=== PATIENT | male | born 1990 | race African-American/Black ===

== ENCOUNTER 2020-05-12 22:49 | Emergency (ER) | payer OTHER ==
[~2020-05-12] VITALS: Ht 177.8 cm; Wt 87.3 kg
[2020-05-12] MEDS ORDERED: IV RINGERS SOLUTION,LACTATED 1,000 ML IV SCH (23:09)
--- NOTE | 2020-05-12 23:09 | PHYS DOC ---
Past History Past Medical History Seasonal allergies, Nasal polyps General Adult HPI: HPI: ".. I had nasal surgery on 05/03.. but it has been bleeding all day...".." It started bleeding real bad after I blew my nose really hard... 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 Patient has history of seasonal allergies and nasal polyps. Patient underwent polyp ectomy on May 03. Surgery was done by [facility] [address] patient states he had been doing well until tonight when he blew his nose real hard and bleeding started. Patient applied some time plexus bilaterally to naris to scope controlled the bleeding. However complains that blood is draining down the back of his throat. Patient denies any fevers. Patient denies any history of coagulopathy with him or family members. No history immunosuppression. No recent travel outside of [facility]. No specific ill contacts. Patient has bilateral nasal bleeding. Primarily on right nare. Does have blood draining down the back of the throat. Review of Systems: Review of Systems: Constitutional: Denies fever or chills Eyes: Denies change in visual acuity HENT: Complains of epistaxis Respiratory: Denies cough or shortness of breath Cardiovascular: Denies chest pain or edema GI: Denies abdominal pain, nausea, vomiting, bloody stools or diarrhea : Denies dysuria Musculoskeletal: Denies back pain or joint pain Integument: Denies rash Neurologic: Denies headache, focal weakness or sensory changes Endocrine: Denies polyuria or polydipsia Lymphatic: Denies swollen glands Psychiatric: Denies depression or anxiety Family History: Family History: Noncontributory to presentation Current Medications: Current Meds: See nursing for home meds Allergies: Allergies: Allergies Coded Allergies Type Severity Reaction Last Updated Verified No Known Drug Allergies 05/12/20 No Physical Exam: PE: Constitutional: Well developed, well nourished, in acute distress, non-toxic oswaldo earance. [] HENT: Normocephalic, findings of recent surgery in both naris, bilateral external ears normal, oropharynx moist, has active bleeding draining down the pharynx, no oral exudates, nose active bleeding bilateral nares, However more active bleeding on right Eyes: PERRLA, EOMI, conjunctiva normal, no discharge. [] Neck: Normal range of motion, no tenderness, supple, no stridor. [] Cardiovascular:Heart rate regular rhythm, no murmur [] Lungs & Thorax: Bilateral breath sounds equal at apex on auscultation [] Abdomen: Bowel sounds normal, soft, no tenderness, no masses, no pulsatile masses. [] Skin: Warm, dry, no erythema, no rash. No noted findings of petechiae or excessive ecchymosis Back: No tenderness, no CVA tenderness. [] Extremities: No tenderness, no cyanosis, no clubbing, ROM intact, no edema. [] Neurologic: Alert and oriented X 3, normal motor function, normal sensory function, no focal deficits noted. [] Psychologic: Affect anxious, judgement normal, mood normal. [] EKG: EKG: [] Radiology/Procedures: Radiology/Procedures: [] Heart Score: Risk Factors: Risk Factors: DM, Current or recent (<one month) smoker, HTN, HLP, family history of CAD, obesity. Risk Scores: Score 0 - 3: 2.5% MACE over next 6 weeks - Discharge Home Score 4 - 6: 20.3% MACE over next 6 weeks - Admit for Clinical Observation Score 7 - 10: 72.7% MACE over next 6 weeks - Early Invasive Strategies Course & Med Decision Making: Course & Med Decision Making Pertinent Labs and Imaging studies reviewed. (See chart for details) Procedure note:- Patient moved to trauma room-for adequate lighting. Patient placed in sitting position. Patient received application of cocaine and Afrin Randy-Synephrine. Equal amounts mixed together. . This was administered by MAD applicator. Bleeding was monitored for several minutes.. This application of nasal spray appears to have stopped the active bleeding. Did readminister 1 spray to right nare. Patient then received small amount of antibiotic ointment to bilateral naris. Patient was monitored for additional hour and a half pending his lab work. Patient had no recurrence of his active nasal bleeding. Patient was issued the remaining Afrin/cocaine mixture and the MAD applicator. Advised he may use 2 sprays to nares if bleeding reoccurs. However if active bleeding reoccurs will need nasal packing. Patient advised he may sniff. Patient advised not to ever blow his nose hard for the next several days. Patient to call Dr.Vidur Garcia this morning for possible earlier follow-up for his recent surgery. Patient to remain sitting when he sleeps. Avoid bending over.. May take Tylenol for discomfort. Patient to not take any NSAIDs. Impression: 1. Acute epistaxis 2. Recent Nasal Polyp /24 3. Hx Seasonal allergies. [] Dragon Disclaimer: Dragon Disclaimer: This electronic medical record was generated, in whole or in part, using a voice recognition dictation system. ABIGAIL JASON MD May 12, 2020 23:09
[2020-05-12] MEDS ORDERED: COCAINE 4% TOPICAL SOLUTION. TP ONE (23:15)
[2020-05-12] MEDS ORDERED: PHENYLEPHRINE 0.5% NASAL SPRAY 15ML BOTTLE. NS ONE (23:19)
[2020-05-12 23:29] LABS: BASO # 0.1 x10^3/uL (0.0-0.2); BASO % 1 % (0-3); EOS # 0.4 x10^3/uL (0.0-0.7); EOS % 5 % (0-3); HEMATOCRIT 43.6 % (39.0-53.0); HEMOGLOBIN 14.3 g/dL (13.0-17.5); LYMPH % 38 % (24-48); MEAN CORPUSCULAR HEMOGLOBIN 28 pg (25-35); MEAN CORPUSCULAR HGB CONC 33 g/dL (31-37); MEAN CORPUSCULAR VOLUME 85 fL (79-100); MONO # 0.5 x10^3/uL (0.0-1.1); MONO % 7 % (0-9); NEUT % 50 % (31-73); PLATELET COUNT 205 x10^3/uL (140-400); RED BLOOD COUNT 5.13 x10^6/uL (4.30-5.70); RED CELL DISTRIBUTION WIDTH 13.3 % (11.5-14.5); WHITE BLOOD COUNT 7.9 x10^3/uL (4.0-11.0)
[2020-05-12] MEDS ORDERED: PHENYLEPHRINE 1% NASAL DROP 30ML BOTTLE. NS ONE (23:30)
[2020-05-12] MEDS ORDERED: BACITRACIN ZINC TOPICAL OINT PACKET. TP ONE (23:30)
[2020-05-12 23:35] LABS: CALCIUM 8.6 mg/dL (8.5-10.1); CREATININE 1.2 mg/dL (0.7-1.3); GFR 72.6
[2020-05-13 00:43] VITALS: BP 121/71
== END 2020-05-13 01:00 | disposition home or self-care (01) ==
LOC: ER 22:49
DX: R04.0 Epistaxis (principal)
CPT/HCPCS: 36415; 80048; 85025; 85610; 85730; 96360; 96361; 99285; J7120

== ENCOUNTER 2020-10-05 19:14 | Emergency (ER) | payer OTHER ==
[~2020-10-05] VITALS: Ht 177.8 cm; Wt 91.7 kg
--- NOTE | 2020-10-05 19:44 | PHYS DOC ---
Past History Past Medical History: No Pertinent History (MADELINE PANG APRN) Past Surgical History: Other Additional Past Surgical Histo: nose polyp (MADELINE PANG APRN) Alcohol Use: Rarely (MADELINE PANG APRN) General Adult EDM: Chief Complaint: LACERATION/AVULSION HPI: HPI: Patient is a 30-year-old male who presents with laceration to left hand. Patient states he was trying to open a tool box with a knife when he slipped and cut his hand. Patient has full range of motion of hand and fingers. Bleeding is controlled. Patient is up-to-date on his tetanus. Denies health history. (MADELINE PANG APRN) Review of Systems: Review of Systems: Constitutional: Denies fever or chills Eyes: Denies change in visual acuity HENT: Denies nasal congestion or sore throat Respiratory: Denies cough or shortness of breath Cardiovascular: Denies chest pain or edema GI: Denies abdominal pain, nausea, vomiting, bloody stools or diarrhea : Denies dysuria Musculoskeletal: Denies back pain or joint pain Integument: Laceration to left hand Neurologic: Denies headache, focal weakness or sensory changes Endocrine: Denies polyuria or polydipsia Lymphatic: Denies swollen glands Psychiatric: Denies depression or anxiety (MADELINE PANG APRN) Allergies: Allergies: Allergies Coded Allergies Type Severity Reaction Last Updated Verified No Known Drug Allergies 05/12/20 No (MADELINE PANG APRN) Physical Exam: PE: Constitutional: Well developed, well nourished, no acute distress, non-toxic appearance. [] HENT: Normocephalic, atraumatic, bilateral external ears normal, oropharynx moist, no oral exudates, nose normal. [] Eyes: PERRLA, EOMI, conjunctiva normal, no discharge. [] Neck: Normal range of motion, no tenderness, supple, no stridor. [] Cardiovascular:Heart rate regular rhythm, no murmur [] Lungs & Thorax: Bilateral breath sounds clear to auscultation [] Abdomen: Bowel sounds normal, soft, no tenderness, no masses, no pulsatile masses. [] Skin: Warm, dry, no erythema, no rash. [] Back: No tenderness, no CVA tenderness. [] Extremities: No tenderness, no cyanosis, no clubbing, ROM intact, no edema. [] Neurologic: Alert and oriented X 3, normal motor function, normal sensory function, no focal deficits noted. [] Psychologic: Affect normal, judgement normal, mood normal. [] (MADELINE PANG APRN) Current Patient Data: Vital Signs: Vital Signs Date Time Temp Pulse Resp B/P (MAP) Pulse Ox O2 Delivery O2 Flow Rate FiO2 10/05/20 19:14 98.4 70 16 141/78 (99) 100 Room Air (MADELINE PANG APRN) EKG: EKG: [] (MADELINE PANG APRN) Radiology/Procedures: Radiology/Procedures: wound cleaned with normal saline. glue applied and steri strips[] (MADELINE PANG APRN) Heart Score: C/O Chest Pain: No Risk Factors: Risk Factors: DM, Current or recent (<one month) smoker, HTN, HLP, family history of CAD, obesity. Risk Scores: Score 0 - 3: 2.5% MACE over next 6 weeks - Discharge Home Score 4 - 6: 20.3% MACE over next 6 weeks - Admit for Clinical Observation Score 7 - 10: 72.7% MACE over next 6 weeks - Early Invasive Strategies (MADELINE PANG APRN) Course & Med Decision Making: Course & Med Decision Making Pertinent Labs and Imaging studies reviewed. (See chart for details) [] Left hand laceration. Up-to-date on tetanus. Bleeding is controlled. Wound cleaned with normal saline. Glue and Steri-Strips applied. (MADELINE PNAG APRN) Course & Med Decision Making Did not see or evaluate patient. Agree with CASING INSPECTOR's work-up and disposition per note. (YRN RODRIGUEZ MD) Dragon Disclaimer: Dragon Disclaimer: This electronic medical record was generated, in whole or in part, using a voice recognition dictation system. (MADELINE PANG APRN) Departure Departure: Impression: Primary Impression: Laceration Disposition: 01 DC HOME SELF CARE/HOMELESS Condition: STABLE Referrals: PCP,UNKNOWN (PCP) Patient Instructions: Laceration Care, Adult Additional Instructions: EMERGENCY DEPARTMENT GENERAL DISCHARGE INSTRUCTIONS Thank you for coming to [facility] (ED) today and trusting us with you care. We trust that you had a positivie experience in our Emergency Department. If you wish to speak to the department management, you may call the director at . YOUR FOLLOW UP INSTRUCTIONS ARE FOLLOWS: 1. Do you have a private Doctor? If you do not have a private doctor, please ask for a resource list of physicians or clinics that may be able to assist you with follow up care. 2. The Emergency Physician has interpreted your x-rays. The X-Ray specialist will also review them. If there is a change in the findings, you will be notified in 48 hours when at all possible. 3. A lab test or culture has been done, your results will be reviewed and you will be notified if you need a change in treatment. ADDITIONAL INSTRUCTIONS AND INFORMATION: 1. Your care today has been supervised by a physician who is specially trained in emergency care. Many problems require more than one evaluation for a complete diagnosis and treatment. We recommend that you schedule your follow up appointment as recommended to ensure complete treatment of you illness or injury. If you are unable to obtain follow up care and continue to have a problem, or if your condition worsens, we recommend that you return to the ED. 2. We are not able to safely determine your condition over the phone nor are we able to give sound medical advice over the phone. For these safety reasons, if you call for medical advice we will ask you to come to the ED for further evaluation. 3. If you have any questions regarding these discharge instructions please call the ED at [phone]. SAFETY INFORMATION: In the interest of safety, wellness, and injury prevention; we encourage you to wear your sealbelt, if you smoke; quite smoking, and we encourage family to use a protective helmet for bicycling and other sporting events that present an increased risk for head injury. IF YOUR SYMPTOMS WORSEN OR NEW SYMPTOMS DEVELOP, OR YOU HAVE CONCERNS ABOUT YOUR CONDITION; OR IF YOUR CONDITION WORSENS WHILE YOU ARE WAITING FOR YOUR FOLLOW UP APPOINTMENT; EITHER CONTACT YOUR PRIMARY CARE DOCTOR, THE PHYSICIAN WHOSE NAME AND NUMBER YOU WERE GIVEN, OR RETURN TO THE ED IMMEDIATELY. MADELINE PANG APRN Oct 05, 2020 19:44 YRN RODRIGUEZ MD Oct 05, 2020 21:42
[2020-10-05 20:00] VITALS: BP 121/71
== END 2020-10-05 20:00 | disposition home or self-care (01) ==
LOC: ER 19:14
DX: S61.412A Laceration without foreign body of left hand, initial encounter (principal); W26.0XXA Contact with knife, initial encounter; Y93.89 Activity, other specified; Y92.89 Other specified places as the place of occurrence of the external cause; Y99.8 Other external cause status
CPT/HCPCS: 12001; 99282